=== PATIENT | female | born 1935 | race Caucasian/White ===

== ENCOUNTER → 2016-11-26 | Outpatient (CLI) | payer BC ==
[~2016-11-26] MED LIST: CHOL100027 PO; INDA1TAB3 PO; LOSA1TAB38 PO; TNR25 PO
[2016-11-26 10:52] LABS: HEMATOCRIT 45.1 % (37-47)
== END | disposition home or self-care (01) ==
LOC: C.LABBC 09:21
PROVIDERS: ATTEND Registered Nurse
DX: K76.0 Fatty (change of) liver, not elsewhere classified (principal)

== ENCOUNTER → 2016-12-26 | Outpatient (CLI) | payer BC ==
[2016-12-26 09:40] LABS: HEMATOCRIT 43.8 % (37-47); MEAN CELL VOLUME 97.3 fL (80-100); MEAN CORPUSCULAR HEMOGLOBIN 33.8 pg (25-34); MEAN CORPUSCULAR HGB CONC 34.7 g/dl (32-36); MEAN PLATELET VOLUME 9.1 fL (7.4-10.4); PLATELET COUNT 255 K/uL (130-400); WHITE BLOOD COUNT 6.23 K/uL (4.8-10.8)
[2016-12-26 09:48] LABS: ALT/SGPT 20 U/L (12-78); BLOOD UREA NITROGEN 15 mg/dl (7-18); CALCIUM 9.2 mg/dl (8.5-10.1); CARBON DIOXIDE 29 mmol/L (21-32); CHLORIDE 98 mmol/L (98-107); CREATININE 0.86 mg/dl (0.60-1.20); GLUCOSE 103 mg/dl (70-99); POTASSIUM 3.7 mmol/L (3.5-5.1); SODIUM 134 mmol/L (136-145)
[2016-12-26 09:52] LABS: ALB/GLOB RATIO 1.2 (0.9-2); ALKALINE PHOSPHATASE 70 U/L (45-117); AST/SGOT 18 U/L (15-37); FERRITIN 73.2 ng/ml (8.0-388.0)
== END | disposition home or self-care (01) ==
LOC: C.LABFOXMH 09:13
PROVIDERS: ATTEND Internal Medicine
DX: E83.119 Hemochromatosis, unspecified (principal)

== ENCOUNTER → 2017-06-26 | Outpatient (CLI) | payer BC ==
[2017-06-26 10:57] LABS: HEMATOCRIT 42.6 % (37-47); MEAN CELL VOLUME 96.8 fL (80-100); MEAN CORPUSCULAR HEMOGLOBIN 33.4 pg (25-34); MEAN CORPUSCULAR HGB CONC 34.5 g/dl (32-36); MEAN PLATELET VOLUME 9.3 fL (7.4-10.4); PLATELET COUNT 233 K/uL (130-400); WHITE BLOOD COUNT 5.67 K/uL (4.8-10.8)
[2017-06-26 11:18] LABS: ALT/SGPT 17 U/L (12-78); BLOOD UREA NITROGEN 14 mg/dl (7-18); BUN/CREATININE RATIO 18.6 (10-20); CALCIUM 8.9 mg/dl (8.5-10.1); CARBON DIOXIDE 29 mmol/L (21-32); CHLORIDE 96 mmol/L (98-107); CREATININE 0.73 mg/dl (0.60-1.20); GLUCOSE 96 mg/dl (70-99); POTASSIUM 3.5 mmol/L (3.5-5.1); SODIUM 131 mmol/L (136-145)
[2017-06-26 11:22] LABS: ALB/GLOB RATIO 1.4 (0.9-2); ALKALINE PHOSPHATASE 70 U/L (45-117); AST/SGOT 21 U/L (15-37); FERRITIN 166.2 ng/ml (8.0-388.0)
== END | disposition home or self-care (01) ==
LOC: C.LABFOXMH 09:27
PROVIDERS: ATTEND Nurse Practitioner Family
DX: E83.119 Hemochromatosis, unspecified (principal)

== ENCOUNTER → 2017-11-08 | Outpatient (CLI) | payer BC ==
--- NOTE | 2017-11-08 13:28 | DIAGNOSTIC IMAGING REPORT ---
L VENOUS DOPP LOWER EXT UNILAT HISTORY: 81 years-old Female LLE,SWELLING,ACHING/FULLNESS, R/O DVT acute left lower extremity pain and swelling COMPARISON: None available TECHNIQUE: Multiple real-time sonographic images of the left lower extremity deep venous structures were obtained assessing grayscale appearance, color and spectral flow FINDINGS: There is normal flow, phasicity, compressibility and augmentation of the left lower extremity deep venous structures. Mildly complex left Higginbotham's cyst measures 2.7 x 3.8 x 0.8 cm. IMPRESSION: No sonographic evidence of deep venous thrombosis. The above report was generated using voice recognition software. It may contain grammatical, syntax or spelling errors. Electronically signed by: Patel Patel M.D. 11/08/2017 1:26 PM Dictated Date/Time: 11/08/2017 1:25 PM
== END | disposition home or self-care (01) ==
LOC: C.ULTRBC 12:57
PROVIDERS: ATTEND Nurse Practitioner Family
DX: M79.605 Pain in left leg (principal); M79.89 Other specified soft tissue disorders

== ENCOUNTER → 2017-12-27 | Outpatient (CLI) | payer BC ==
[~2017-12-27] MED LIST changes: +ACET-1256 PO; +BETHAMETHASONE TOP; +POTA-74 PO
[2017-12-27 09:13] LABS: BLOOD UREA NITROGEN 14 mg/dl (7-18); CALCIUM 9.2 mg/dl (8.5-10.1); CARBON DIOXIDE 30 mmol/L (21-32); GLUCOSE 118 mg/dl (70-99); POTASSIUM 3.6 mmol/L (3.5-5.1); SODIUM 133 mmol/L (136-145)
== END | disposition home or self-care (01) ==
LOC: C.LABFOXMH 08:36
PROVIDERS: ATTEND Internal Medicine Hospice and Palliative Medicine
DX: E87.1 Hypo-osmolality and hyponatremia (principal)

== ENCOUNTER → 2018-01-09 | Outpatient (CLI) | payer BC ==
[2018-01-09 10:00] LABS: BLOOD UREA NITROGEN 16 mg/dl (7-18); CALCIUM 9.3 mg/dl (8.5-10.1); CARBON DIOXIDE 28 mmol/L (21-32); CREATININE 0.81 mg/dl (0.60-1.20); GLUCOSE 115 mg/dl (70-99); POTASSIUM 3.7 mmol/L (3.5-5.1); SODIUM 131 mmol/L (136-145)
== END | disposition home or self-care (01) ==
LOC: C.LABFOXMH 08:46
PROVIDERS: ATTEND Internal Medicine
DX: I10 Essential (primary) hypertension (principal)

== ENCOUNTER → 2018-01-21 | Outpatient (CLI) | payer BC ==
[2018-01-21 08:46] LABS: BLOOD UREA NITROGEN 13 mg/dl (7-18); CALCIUM 8.7 mg/dl (8.5-10.1); CARBON DIOXIDE 26 mmol/L (21-32); CREATININE 0.76 mg/dl (0.60-1.20); GLUCOSE 100 mg/dl (70-99); SODIUM 138 mmol/L (136-145)
[2018-01-21 08:53] LABS: OSMOLALITY,URINE 185 mOms/kg (500-800)
[2018-01-21 08:58] LABS: SODIUM RANDOM URINE 29 mEq/L
== END | disposition home or self-care (01) ==
LOC: C.LABFOXMH 08:07
PROVIDERS: ATTEND Internal Medicine
DX: E87.1 Hypo-osmolality and hyponatremia (principal)

== ENCOUNTER → 2018-02-17 | Outpatient (CLI) | payer BC ==
[2018-02-17 08:28] LABS: BLOOD UREA NITROGEN 19 mg/dl (7-18); CARBON DIOXIDE 29 mmol/L (21-32); CREATININE 0.85 mg/dl (0.60-1.20); GLUCOSE 104 mg/dl (70-99); POTASSIUM 4.3 mmol/L (3.5-5.1); SODIUM 138 mmol/L (136-145)
== END | disposition home or self-care (01) ==
LOC: C.LABFOXMH 07:45
PROVIDERS: ATTEND Internal Medicine
DX: I10 Essential (primary) hypertension (principal)

== ENCOUNTER → 2018-06-09 | Outpatient (CLI) | payer BC ==
[~2018-06-09] MED LIST changes: +AMOX1TAB43 PO; +MGNO400 PO; -POTA-74 PO; +SPIR25TA PO
[2018-06-09 15:44] LABS: BASO % 0.5 %; BASO ABS # 0.04 K/uL (0-0.2); EOS % 1.3 %; HEMATOCRIT 42.8 % (37-47); HEMOGLOBIN 14.8 g/dL (12.0-16.0); IG# 0.02 K/uL (0.00-0.02); LYMPH ABS # 2.39 K/uL (1.2-3.4); MEAN CELL VOLUME 97.7 fL (80-100); MEAN CORPUSCULAR HEMOGLOBIN 33.8 pg (25-34); MEAN CORPUSCULAR HGB CONC 34.6 g/dl (32-36); MEAN PLATELET VOLUME 9.4 fL (7.4-10.4); MONO % 7.8 %; MONO ABS # 0.62 K/uL (0.11-0.59); NEUT % 60.1 %; NEUT ABS # 4.79 K/uL (1.4-6.5); PLATELET COUNT 244 K/uL (130-400); RED CELL DISTRIBUTION WIDTH CV 12.6 % (11.5-14.5); RED CELL DISTRIBUTION WIDTH SD 45.2 fL (36.4-46.3); WHITE BLOOD COUNT 7.96 K/uL (4.8-10.8)
[2018-06-09 15:55] LABS: PTT PATIENT 27.3 SECONDS (21.0-31.0)
[2018-06-09 16:02] LABS: ALBUMIN 3.9 gm/dl (3.4-5.0); BLOOD UREA NITROGEN 19 mg/dl (7-18); CARBON DIOXIDE 27 mmol/L (21-32); CREATININE 0.78 mg/dl (0.60-1.20); GLUCOSE 101 mg/dl (70-99); POTASSIUM 3.9 mmol/L (3.5-5.1); SODIUM 137 mmol/L (136-145)
[2018-06-10 05:54] LABS: HEMOGLOBIN A1C 5.7 % (4.5-5.6)
== END | disposition home or self-care (01) ==
LOC: C.LAB 14:23
PROVIDERS: ATTEND Physician Assistant
DX: Z01.812 Encounter for preprocedural laboratory examination (principal)

== ENCOUNTER 2022-02-23 09:45 | Observation (INO) ==
--- NOTE | 2022-02-17 09:00 | History & Physical Report ---
Date of Service February 17, 2022 Assessment & Plan (1) Fracture of humeral head, left, closed: Plan: Treatment options discussed with the patient. She would like to proceed with surgical intervention. Risks, benefits and alternatives to surgery including but not limited to infection, DVT, pain, stiffness, need for revision surgery, damage to blood vessels, damage to nerves, PE, , were discussed with the patient and they wish to proceed. Plan on left reverse total shoulder arthroplasty for fracture. Surgery scheduled for February 23 at [facility] with Dr. Spann. All questions were answered. Patient will return to [facility] upon discharge. Patient will follow-up postoperatively. Encounter type: initial encounter Qualified Code(s): S42.292A - Other displaced fracture of upper end of left humerus, initial encounter for closed fracture History of Present Illness Chief Complaint: Left shoulder pain Primary Care Provider: [facility] 86-year-old female with past medical history significant for hypertension, hemo chromatosis, valvular disease presents with acute onset of left shoulder pain. Patient was sitting on a walker that she had bought and a wheel broke. She fell onto her left shoulder. X-rays demonstrated a significant displaced and impacted proximal humerus fracture. Patient is independent at baseline. Recommend surgical intervention. Patient denies headaches, sweats, fevers, chills, double vision, blurred vision, cough, sore throat, dysphagia, chest pain, sob, wheezing, n/v/d/c, numbness, tingling, fatigue, urinary symptoms, mood disorders. ROS positive for left shoulder pain. Allergies Allergy/AdvReac Type Severity Reaction Status Date / Time lorazepam [From Ativan] AdvReac itching Verified 06/29/21 08:16 Home Medications Medication Instructions Recorded Confirmed Type amlodipine 2.5 mg tablet 2.5 mg PO QAM 06/09/18 09/27/21 History atenolol 50 mg tablet 50 mg PO HS 06/09/18 09/27/21 History cholecalciferol (vitamin D3) 50 2,000 unit PO QAM 06/09/18 09/27/21 History mcg (2,000 unit) capsule (Vitamin D3) losartan 100 mg tablet 100 mg PO QAM 06/09/18 09/27/21 History spironolactone 25 mg tablet 12.5 mg PO QAM 06/09/18 09/27/21 History acetaminophen 500 mg tablet 500 mg PO HS 10/21/19 09/27/21 History (Tylenol Extra Strength) docusate sodium 100 mg capsule 100 mg PO BID #60 cap 02/09/22 Rx (Colace) hydrocodone 5 mg-acetaminophen 325 0.5 - 1 tab PO Q6H PRN #14 tab 02/09/22 Rx mg tablet Past Med/Surg History Medical History Cancer SKIN (BCC) Glaucoma Hemochromatosis Follows with GI Hypertension LBBB (left bundle branch block) Chronic since 2011 per PCP. Doesnt see cardio. Osteoarthritis Sensorineural hearing loss (SNHL) of right ear with restricted hearing of left ear Valvular disease Mild MR. Moderate TR. Mildly elevated RVSP 48mmhg: per 2018 ECHO. Surgical History H/O left cataract extraction History of appendectomy History of bilateral tubal ligation History of breast biopsy right History of colonoscopy History of right cataract surgery History of tonsillectomy History of total hip arthroplasty RIGHT & LEFT History of total knee replacement RIGHT Family History Denies family history of Colorectal cancer Social History Smoking Status: Never smoker Second Hand Exposure: No; Hx Alcohol Use: Yes Alcohol type: wine Hx Substance Use: No Preferred Language: Divehi Communication Ability: Effective Leather Staker Required: No Beliefs That Will Affect Care: None Current Living Situation: Other Current Living Situation Comment: [facility] Feels Safe at Home: Yes Assistive Devices: Glasses and Hearing Aid - Bilateral Review of Systems All systems reviewed & are unremarkable except as noted in HPI & below Physical Exam Constitutional: well developed and well nourished; no acute distress Eyes: PERRL, conjunctivae normal, anicteric sclerae ENMT: external ear and nose normal, oropharynx normal Neck: trachea midline, no thyromegaly Respiratory: normal respiratory effort, lungs clear to auscultation Cardiovascular: RRR, no murmur, no edema Musculoskeletal: Left shoulder: Tenderness proximal humerus. Significant ecchymosis left upper extremity, mild to moderate swelling. Fingers are mobile. Distal neurovascular status and sensation intact. Sensation to axillary nerve distribution is intact. Wrist hand and elbow motion is normal. Pain with gentle passive motion of her shoulder. Skin: no rashes, warm and dry Neurologic: patellar DTR's 2+ bilat, sensation intact Psychiatric: A+Ox3, euthymic affect Results & Data ([facility]) Diagnostic Findings LEFT SHOULDER 3 VIEWS CLINICAL HISTORY: Fall with left shoulder injury. FINDINGS: 3 views of the left shoulder are obtained. No prior studies are available for comparison at the time of dictation. The skeletal structures are osteopenic. There is an impacted and comminuted fracture of the left humeral head and neck. There are displaced fragments from the humeral head as well as mild medial displacement of the humeral shaft. Overlying soft tissue edema is noted. No additional fracture is identified. Mild degenerative change is noted at the acromioclavicular joint. The imaged left lung parenchyma appears clear noting basilar atelectasis. There is atherosclerotic calcification of the thoracic aorta. IMPRESSION: Impacted and comminuted fracture of the left humeral head and neck as above.
--- NOTE | 2022-02-21 10:41 | Anesthesiology Consultation ---
Date of Service February 21, 2022 Assessment & Plan (1) Encounter for pre-operative examination: - COVID screening: Per assessment on 02/21: No known COVID-19 positive contacts or current COVID-19 related symptoms. Travel screen negative. Patient vaccinated. Preop COVID test done 02/19 ([place]) was negative. - Preop EKG: Done 02/20/22 (unconfirmed). Very poor data quality possibly affecting interpretation. Recent echo done 01/[address] Abdul. Will repeat EKG AM DOS. Chart Review Chart Review: Acceptable Risk for Surgery (pending EKG/evaluation AM DOS) and Patient NOT seen in Pre Admission Testing History Surgery Operation Date: 02/23/22 11:35 Proposed Procedures p Left Total Shoulder Arthroplasty Reverse - Sebas Spann MD Height/Weight Height: 5 ft Weight: 63.503 kg Allergies Allergy/AdvReac Type Severity Reaction Status Date / Time lorazepam [From Ativan] AdvReac Intermediate itching Verified 02/21/22 08:36 Medications Home Medications Medication Instructions Recorded Confirmed Last Taken amlodipine 2.5 mg tablet 2.5 mg PO QAM 06/09/18 02/21/22 11/04/19 06:00 atenolol 50 mg tablet 50 mg PO 06/09/18 02/21/22 11/03/19 cholecalciferol (vitamin D3) 50 2,000 unit PO QAM 06/09/18 02/21/22 11/03/19 mcg (2,000 unit) capsule (Vitamin D3) losartan 100 mg tablet 100 mg PO QAM 06/09/18 02/21/22 11/03/19 spironolactone 25 mg tablet 12.5 mg PO QAM 06/09/18 02/21/22 11/03/19 acetaminophen 500 mg tablet 500 mg PO HS 10/21/19 02/21/22 11/03/19 (Tylenol Extra Strength) docusate sodium 100 mg capsule 100 mg PO BID #60 cap 02/09/22 02/21/22 Unknown (Colace) hydrocodone 5 mg-acetaminophen 325 0.5 - 1 tab PO Q6H PRN #14 tab 02/09/22 02/21/22 Unknown mg tablet Past Medical History Medical History Cancer skin (BCC) Glaucoma Hemochromatosis Follows with GI, no recent issues noted Hypertension LBBB (left bundle branch block) Chronic since 2011 per PCP, had unremarkable echo 01/31/22 Osteoarthritis Sensorineural hearing loss (SNHL) of right ear with restricted hearing of left ear Past Family History Family History Other No family history of adverse response to anesthesia Denies family history of Colorectal cancer Past Surgical History Surgical History H/O left cataract extraction History of appendectomy History of bilateral tubal ligation History of breast biopsy right History of colonoscopy History of right cataract surgery History of tonsillectomy History of total hip arthroplasty RIGHT & LEFT History of total knee replacement RIGHT Social History Smoking Status: Former smoker tobacco type: cigarettes Do You Dip or Chew Tobacco: No Hx Alcohol Use: Yes Alcohol type: wine alcohol intake frequency: holidays/special occasions only Hx Substance Use: No substance use type: does not use Lab Results Anesthesia Preop Results Results Anesthesia Widget: WBC 8.03 K/uL (4.8-10.8) 02/19/22 Hgb 12.3 g/dL (12.0-16.0) 02/19/22 Hct 37.3 % (37-47) 02/19/22 Plt 365 K/uL (130-400) 02/19/22 Na 134 mmol/L (136-145) L 02/19/22 K 4.6 mmol/L (3.5-5.1) 02/19/22 Cl 100 mmol/L (98-107) 02/19/22 CO2 28 mmol/L (21-32) 02/19/22 BUN 17 mg/dl (6-23) 02/19/22 Creat 0.68 mg/dl (0.6-1.2) 02/19/22 Glucose Level 102 mg/dl (70-99(Fasting)) H 02/19/22 PT 10.7 Seconds (9.0-12.0) 02/19/22 PTT 26.9 Seconds (21.0-31.0) 02/19/22 INR 1.0 (0.9-1.1) 02/19/22 HA1c 5.5 % (4.5-5.6) 02/19/22 Urine Color Yellow 02/14/22 Urine Appearance Cloudy (Clear) A 02/14/22 Urine pH 7.0 (4.5-7.5) 02/14/22 Urine Specific [place] 1.010 (1.000-1.030) 02/14/22 Urine Protein Trace (Negative) H 02/14/22 Urine Glucose (UA) Negative (Negative) 02/14/22 Urine Ketones Negative (Negative) 02/14/22 Urine Blood 2+ (Negative) H 02/14/22 Urine Nitrite Negative (Negative) 02/14/22 Urine Bilirubin Negative (Negative) 02/14/22 Urine Urobilinogen Negative (Negative) 02/14/22 Urine Leukocyte Esterase 3+ (Negative) H 02/14/22 Urine WBC (Auto) >30 /hpf (0-5) H 02/14/22 Urine RBC (Auto) 0-4 /hpf (0-4) 02/14/22 Urine Hyaline Casts (Auto) 1-5 /lpf (0-5) 02/14/22 Urine Epithelial Cells (Auto) 10-20 /lpf (0-5) H 02/14/22 Urine Bacteria (Auto) 4+ (Negative) H 02/14/22 Testing Laboratory Results 02/14/22 URINE CULTURE e. coli Electrocardiogram Date: 02/20/22 Accelerated AV junctional rhythm with aberrant ventricular conduction or acceleration idioventricular rhythm at 71bpm. Aberrantly conducted complexes. moderate IVCD. Slight high-lateral repolarization disturbance, consider ischemia, LV overload or aspecific change. unconfirmed report. Recent echo done 02/01/20. Echocardiogram Date: 01/31/22 EF 55-60%. No RWMA. Mild AV sclerosis. Mild AR. Mild to moderate TR. RVSP elevated at 40-50mmhg.
[~2022-02-23 09:45] MED LIST changes: -ACET-1256 PO; +ACETAMINOPHEN 500 MG TAB PO SCH; -AMOX1TAB43 PO; -BETHAMETHASONE TOP; +BUPIVACAINE 0.5 % 5 MG/1 ML PF 10ML VIAL ONE; -CHOL100027 PO; +CeleBREX 200 MG CAP PO SCH; +FAMOTIDINE 20 MG TAB PO SCH; +GABAPENTIN 300 MG CAP PO SCH; -INDA1TAB3 PO; +LACTATED RINGER'S 1,000 ML IV SCH; -LOSA1TAB38 PO; -MGNO400 PO; -SPIR25TA PO; -TNR25 PO; +TRANEXAMIC ACID 1,000 MG **IV Intra-op IV SCH; +TRANEXAMIC ACID 1,000 MG **IV Pre-op IV SCH; +ceFAZolin 2000MG 2,000 MG/15 ML SYR IV SCH; +dexAMETHasone 4 MG TAB PO SCH
[2022-02-23] MEDS ORDERED: fentaNYL citrate 100 MCG/2 ML VIAL ONE (10:53)
[2022-02-23] MEDS ORDERED: MIDAZOLAM HCL 1 MG/ML 2ML VIAL ONE (10:53)
--- NOTE | 2022-02-23 11:10 | History & Physical Bridge Note ---
Date of Service February 23, 2022 History & Physical Bridge Note I have examined the patient, reviewed the History & Physical and in the interval since the performance of the History & Physical I have noted the following changes of clinical significance: no changes noted
[2022-02-23] MEDS ORDERED: ROPIVACAINE 0.5% 5 MG/ML 30 ML VIAL ONE (12:09)
[2022-02-23] MEDS ORDERED: EPINEPHrine INJ 1 MG/ML AMP ONE (12:10)
[2022-02-23] MEDS ORDERED: ATROPINE SULFATE 0.1 MG/ML 10ML SYR IV PRN (13:29)
[2022-02-23] MEDS ORDERED: fentaNYL citrate 100 MCG/2 ML VIAL IV PRN (13:29)
[2022-02-23] MEDS ORDERED: ePHEDrine sulfate 50 MG/ML AMP IV PRN (13:29)
[2022-02-23] MEDS ORDERED: ONDANSETRON INJ 2 MG/ML 2 ML VIAL IV PRN ×2 (13:29→17:52)
[2022-02-23] MEDS ORDERED: SUGAMMADEX SODIUM 200 MG/2 ML VIAL IV ONE (14:05)
[2022-02-23] MEDS ORDERED: KETOROLAC 30 MG/ML VIAL ONE (16:01)
--- NOTE | 2022-02-23 16:29 | Post Operative Brief Note ---
Immediate Post Op Note v1 Date of Surgery February 23, 2022 Pre & Post Diagnosis Operation Date: 02/23/22 12:05 Pre-Op Diagnosis: Left impacted comminuted displaced proximal Humerus Fracture Post-Op Diagnosis: Left impacted comminuted displaced proximal humerus Fracture, glenohumeral osteoarthritis degeneration glenoid labrum, biceps tendinopathy. I identified the patient and participated in the time-out.: Yes Procedure Operation Date: 02/23/22 12:05 Actual Procedures p Left Total Shoulder Arthroplasty Reverse-Cemented(Left) bone grafting and repair of tuberosities, biceps tenodesis. Sebas Spann MD Surgeon Sebas Spann MD [employer] Estimated Blood Loss 150 Findings Consistent with Post-Op Diagnosis Specimens Humeral head Drains Hemovac Drain Anesthesia Type General Regional Complications none Disposition Disposition: Recovery Room Overlapping Procedure I was immediately available: during the entire case.
--- NOTE | 2022-02-23 16:54 | XRay Report ---
XR shoulder LT min 2V routine CLINICAL HISTORY: Post shoulder surgery TECHNIQUE: 3 views of the left shoulder were obtained. Comparison: Comparison is made to shoulder radiograph 02/09/2022 FINDINGS: Patient is status post shoulder arthroplasty with expected postsurgical changes including soft tissue swelling, subcutaneous emphysema, and surgical staple placement. No periarticular lucency or hardwar e fracture is seen. Aortic calcification is again noted. IMPRESSION: Expected postoperative appearance status post placement of shoulder arthroplasty. ACT 112: Negative or not required by law. Electronically signed by: Jagdeep Welch M.D. 02/23/2022 4:53 PM
--- NOTE | 2022-02-23 17:08 | Anesthesiology Progress Note ---
Date of Service February 23, 2022 Anesthesia Post Procedure Vital Signs Vital Signs: Temp Pulse Pulse Resp BP Pulse Ox 02/23/22 17:05 65 14 104/44 L 94 02/23/22 16:55 64 12 115/42 L 95 02/23/22 16:45 66 17 117/48 L 100 02/23/22 16:35 66 16 139/52 L 100 02/23/22 16:25 36.0 C L 67 20 135/47 L 100 02/23/22 10:18 36.9 C 69 18 121/54 L 97 Transfer of Care Handoff Completed per policy Notes Mental Status: alert / awake / arousable Patient Amnestic to Procedure: Yes Nausea / Vomiting: adequately controlled Pain: adequately controlled Airway Patency, RR, SpO2: stable & adequate BP & HR: stable & adequate Hydration State: stable & adequate Anesthetic Complications: no major complications apparent and Pt Satisfied with anesthetic care Notes: The patient is awake and comfortable.
[2022-02-23] MEDS ORDERED: HYDROmorphone INJ 0.5 MG/0.5 ML SYR IV PRN (17:52)
[2022-02-23] MEDS ORDERED: NALOXONE HCL 0.4 MG/1 ML VIAL/CARP IV PRN (17:52)
[2022-02-23] MEDS ORDERED: MAGNESIUM HYDROXIDE SUSP 30 ML UDC PO PRN (17:52)
[2022-02-23] MEDS ORDERED: METOCLOPRAMIDE HCL INJ 5 MG/ML 2 ML VIAL IV PRN (17:52)
[2022-02-23] MEDS ORDERED: bisacodyL 10 MG SUPP PR PRN (17:52)
[2022-02-23] MEDS: SODIUM CHLORIDE 0.9% 1000ML 1,000 ML IV SCH (18:34)
[2022-02-23] MEDS: ASPIRIN 81 MG ECTAB PO SCH (20:22)
[2022-02-23] MEDS: SENNA 8.6 MG TAB PO SCH (20:22)
[2022-02-23] MEDS: DOCUSATE SODIUM 100 MG CAP PO SCH (20:22)
[2022-02-23] MEDS ORDERED: DOCUSATE SODIUM 100 MG CAP PO SCH (21:00)
[2022-02-23] MEDS ORDERED: ATENOLOL 50 MG TABLET PO SCH (21:00)
[2022-02-23] MEDS: ceFAZolin 1000MG 1,000 MG/7.5 ML SYR IV SCH (21:39)
[2022-02-23] MEDS: ACETAMINOPHEN 500 MG TAB PO SCH (21:40)
--- NOTE | 2022-02-23 22:30 | Electrocardiogram Report ---
Test Reason : Blood Pressure : / mmHG Vent. Rate : 066 BPM Atrial Rate : 066 BPM P-R Int : 146 ms QRS Dur : 122 ms QT Int : 436 ms P-R-T Axes : 039 080 058 degrees QTc Int : 457 ms Normal sinus rhythm Left bundle branch block Abnormal ECG When compared with ECG of 23-MAR-2018 07:08, No significant change Confirmed by Mark Malcolm ([id number]) on 02/23/2022 10:29:55 PM Referred By: Sebas Spann Confirmed By:Mark Malcolm
[2022-02-24] MEDS: SODIUM CHLORIDE 0.9% 1000ML 1,000 ML IV SCH (04:20)
[2022-02-24] MEDS: ceFAZolin 1000MG 1,000 MG/7.5 ML SYR IV SCH (06:08)
[2022-02-24] MEDS: ACETAMINOPHEN 500 MG TAB PO SCH ×3 (06:10→21:05)
--- NOTE | 2022-02-24 06:31 | Orthopedic Progress Note ---
Date of Service February 24, 2022 Assessment & Plan (1) Status post reverse arthroplasty of left shoulder: Plan: POD #1 s/p Left Total Shoulder Arthroplasty Reverse sling cont to ice left shoulder no ROM left shoulder, she can do gentle hand/wrist/elbow ROM ASA 81mg po bid d/c hemovac Admission and Anticipated Discharge Date Admission Date: February 23, 2022 Subjective POD #1 s/p Left Total Shoulder Arthroplasty Reverse Review of Systems Constitutional: no fever and no chills Respiratory: no cough and no dyspnea Cardiovascular: no chest pain, no dyspnea and no orthopnea Gastrointestinal: no abdominal pain, no nausea and no vomiting Physical Exam Physical Exam: Vital Signs Temp 36.5 C 02/24/22 03:51 Pulse 60 02/24/22 03:51 Resp 14 02/24/22 03:51 BP 93/57 L 02/24/22 03:51 Pulse Ox 94 02/24/22 03:51 Intake & Output 02/23/22 02/23/22 02/24/22 06:59 18:59 06:59 Intake Total 1550 / 2926.667 1376.667 / 2926.66 7 Output Total 160 / 195 35 / 195 Balance 1390 / 2731.667 1341.667 / 2731.66 7 Weight 63.503 kg Intake: IV 200 / 1176.667 976.667 / 1176.667 Lactated Ringe r's 1,000 ml @ 15 0 / 0 mls/hr IV .Q24 H LENO Rx#: [id number] Sodium Chlorid e 0.9% 1000ML 1, 976.667 / 976.667 000 ml @ 100 m ls/hr IV .Q10H LENO Rx#:[id number] Tranexamic Aci d / 0.7% NaCl 1, 200 / 200 000 mg In 100 ml @ 600 mls/hr IV TODAY@0600 LENO Rx#:[id number] IV Perioperative 1350 / 1350 Oral 400 / 400 Output: Estimated Blood Loss 150 / 150 Drain Output 35 / 45 Left Shoulder Hemovac 35 Other: # Unmeasured Voi ds 1 Weight Measureme nt Method Standing Scale Constitutional: WD/WN, vitals as above Musculoskeletal: Left upper extremity: resting in sling, dressing clean and dry. rad/med/uln nerves intact. Rad pulse +2 Results & Data ([facility]) Vital Signs (Past 12 Hours) Vital Signs Temp Pulse Resp BP Pulse Ox 02/24/22 03:51 36.5 C 60 14 93/57 L 94 02/23/22 23:35 36.3 C L 59 L 15 92/55 L 94 02/23/22 23:25 36.5 C 75 91/64 L 94 02/23/22 18:58 71 16 109/66 93 02/23/22 18:35 36.8 C 78 18 120/66 94
[2022-02-24 06:56] LABS: Basophils # (auto) 0.01 K/uL (0-0.2); Basophils % (auto) 0.1 %; Eosinophils # (auto) 0.01 K/uL (0-0.5); Eosinophils % (auto) 0.1 %; Hematocrit (blood only) 32.9 % (37-47); Hemoglobin 11.1 g/dL (12.0-16.0); Immature Granulocytes # (auto) 0.04 K/uL (0.00-0.02); Immature Granulocytes % (auto) 0.3 %; Lymphocytes # (auto) 1.16 K/uL (1.2-3.4); Lymphocytes % (auto) 7.7 %; Mean Corpuscular Hemoglobin 34.2 pg (25-34); Mean Corpuscular Hgb Conc 33.7 g/dL (32-36); Mean Corpuscular Volume 101.2 fL (80-100); Mean Platelet Volume 8.5 fL (7.4-10.4); Monocytes # (auto) 0.89 K/uL (0.11-0.59); Monocytes % (auto) 5.9 %; Neutrophils # (auto) 12.88 K/uL (1.4-6.5); Neutrophils % (auto) 85.9 %; Platelet Count 339 K/uL (130-400); RDW Coefficient of Variation 13.8 % (11.5-14.5); RDW Standard Deviation 51.4 fL (36.4-46.3); Red Blood Count 3.25 M/uL (4.2-5.4); White Blood Count 14.99 K/uL (4.8-10.8)
[2022-02-24 07:11] LABS: Calcium 8.1 mg/dl (8.5-10.1); Creatinine Clr Calc Pharmacy 32.4 ml/min; Est GFR (African American) 58.3 ml/min; Est GFR (Non-African American) 50.3 ml/min; Potassium 4.6 mmol/L (3.5-5.1)
[2022-02-24] MEDS: oxyCODONE HCL IR 5 MG TAB (IMMEDIATE RELEASE) PO PRN ×3 (08:57→23:10)
[2022-02-24] MEDS: MULTIVITAMIN TAB PO SCH (08:58)
[2022-02-24] MEDS: CHOLECALCIFEROL 1,000 UNITS 25 MCG TAB PO SCH (08:58)
[2022-02-24] MEDS: ASPIRIN 81 MG ECTAB PO SCH ×2 (08:58→21:04)
[2022-02-24] MEDS: DOCUSATE SODIUM 100 MG CAP PO SCH ×2 (08:58→21:05)
[2022-02-24] MEDS ORDERED: SPIRONOLACTONE 12.5 MG TAB PO SCH (09:00)
[2022-02-24] MEDS ORDERED: amLODIPine BESYLATE 5 MG TAB PO SCH (09:00)
[2022-02-24] MEDS ORDERED: LOSARTAN POTASSIUM 50 MG TAB PO SCH (09:00)
--- NOTE | 2022-02-24 13:12 | Hospitalist Consultation ---
Date of Consultation February 24, 2022 Assessment & Plan (1) Status post reverse arthroplasty of left shoulder: (2) Sensorineural hearing loss (SNHL) of right ear with restricted hearing of left ear: (3) History of basal cell carcinoma: (4) Encounter for pre-operative examination: (5) HTN (hypertension): (6) LBBB (left bundle branch block): (7) Hemochromatosis: (8) Tricuspid regurgitation: Kelly is an 86-year-old female with history of hemochromatosis and hypertension who presents for operative repair of a left shoulder fracture. We are consulted for medical management of chronic medical problems. She is doing well and stable at bedside assessment Left shoulder fracture status postoperative repair Activity, pain control, rehab per primary surgical team Neurovascularly intact at time of assessment Hypertension Patient on [employer] TAPER amlodipine 2.5 mg, atenolol 50 mg, losartan 100 mg, spironolactone 12.5 mg Patient mildly hypotensive but asymptomatic postsurgically Hold antihypertensives at this time. If blood pressure improves resume amlodipine and atenolol. If blood pressure continues to remain normal may resume losartan. Consider dose reduction in losartan depending on pressures Patient reports that while she has been on losartan spironolactone, he was elliot d to stop spironolactone shortly before admission Discontinue spironolactone CBC, BMP in the morning History of valve disease TTE 02/02: EF 55-60%. Mild aortic sclerosis without significant stenosis. Mild to moderate tricuspid regurg. No acute intervention for this Historical left bundle branch block on EKG. No symptoms of ACS. 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 She underwent surgical repair with total left shoulder arthroplasty reverse cemented on 02/23/2022 and is seen postop. She is comfortable and in no acute distress Kelly is seen at the bedside. She reports she feels well, has some aching in her left shoulder at the surgical site but otherwise feels well. She reports she has not had any lightheadedness, dizziness, chest pain, chest pressure, syncope, or presyncope but does note that her blood pressure has been lower than normal. She reports that she thinks she did take her blood pressure medicines prior to surgery. Does not normally have any problems with low blood pressure. She reports her fingers feel okay bilaterally, she is able to wiggle her fingers without numbness tingling or pain in her left arm. She has not any nausea, vomiting, diarrhea and has not had any fevers or chills since surgery. She does have a history of some hearing loss, left bundle branch block, and hemochromatosis. Medical History: Reviewed Medications: Reviewed Surgical History: Reviewed Allergies: Reviewed Social History: Does drink evening wine at home, no recent tobacco use, no recreational drug use Code Status: Full code Allergies Allergy/AdvReac Type Severity Reaction Status Date / Time lorazepam [From Ativan] AdvReac Intermediate itching Verified 02/23/22 10:14 Home Medications Medication Instructions Recorded Confirmed Type amlodipine 2.5 mg tablet 2.5 mg PO QAM 06/09/18 02/23/22 History atenolol 50 mg tablet 50 mg PO HS 06/09/18 02/23/22 History cholecalciferol (vitamin D3) 50 2,000 unit PO QAM 06/09/18 02/23/22 History mcg (2,000 unit) capsule (Vitamin D3) losartan 100 mg tablet 100 mg PO QAM 06/09/18 02/23/22 History spironolactone 25 mg tablet 12.5 mg PO QAM 06/09/18 02/23/22 History acetaminophen 500 mg tablet 500 mg PO HS 10/21/19 02/23/22 History (Tylenol Extra Strength) docusate sodium 100 mg capsule 100 mg PO BID #60 cap 02/09/22 02/23/22 Rx (Colace) hydrocodone 5 mg-acetaminophen 325 0.5 - 1 tab PO Q6H PRN #14 tab 02/09/22 02/23/22 Rx mg tablet Patient History Medical History Cancer skin (BCC) Glaucoma Hemochromatosis Follows with GI, no recent issues noted Hypertension LBBB (left bundle branch block) Chronic since 2011 per PCP, had unremarkable echo 01/31/22 Osteoarthritis Sensorineural hearing loss (SNHL) of right ear with restricted hearing of left ear Surgical History H/O left cataract extraction History of appendectomy History of bilateral tubal ligation History of breast biopsy right History of colonoscopy History of right cataract surgery History of tonsillectomy History of total hip arthroplasty RIGHT & LEFT History of total knee replacement RIGHT Family History Other No family history of adverse response to anesthesia Denies family history of Colorectal cancer Social History Smoking Status: Former smoker Second Hand Exposure: Yes (hx); Do You Dip or Chew Tobacco: No; Tobacco Cessation Education Requested by Patient: No Hx Alcohol Use: Yes Alcohol type: wine Hx Substance Use: No Preferred Language: Kyrgyz Communication Ability: Effective Network Solutions Architect Required: No Beliefs That Will Affect Care: None Current Living Situation: Other Current Living Situation Comment: [facility] Other Information That Helps Us Care for You: No Feels Safe at Home: Yes Safety Concerns: Feels Safe At This Time Assistive Devices: Cane, Glasses and Hearing Aid - Bilateral Assistive Devices Comment: arm sling prn Review of Systems Review of Systems: All systems reviewed & are unremarkable except as noted in Subjective Physical Exam Physical Exam: General: A&Ox3. NAD. Cooperative. HEENT: Atraumatic, normocephalic. Vision/hearing grossly intact Pulm: CTAB A&P. -wheezes, -rales, -rhonchi. Symmetrical chest rise. No increase in work of breathing. No respiratory distress. Cardiac: RRR, trace systolic murmur, no rubs or gallops Radial pulses intact and symmetrical. Abdominal: Nontender, nondistended, soft. BS present. Extremities: Left upper extremity with postsurgical dressing intact, arm in sling. Full passive and active range of motion in wrist and fingertips, sensation intact to soft touch in hands bilaterally, radial pulses intact bilaterally, camp advisor strength intact bilaterally. Results & Data Results & Data ([facility]) Vital Signs (Past 12 Hours) Vital Signs Temp Pulse Pulse Resp BP Pulse Ox 02/24/22 07:16 36.5 C 57 L 16 95/58 L 97 02/24/22 03:51 36.5 C 60 14 93/57 L 94 PG Care Time/CCT Total # of Minutes Spent Total Time Spent with Patient: Total time spent is greater than 50% in coordination of care (as documented) at patient's floor/unit and/or counseling patient: Coding Level of Care Code 40639 Inpt Consult Level 4 Diagnoses Status post reverse arthroplasty of left shoulder Z96.612 Sensorineural hearing loss (SNHL) of right ear with restricted hearing of left ear H90.A21 History of basal cell carcinoma Z85.828 Encounter for pre-operative examination Z01.818 HTN (hypertension) I10 LBBB (left bundle branch block) I44.7 Hemochromatosis E83.119 Tricuspid regurgitation I07.1
[2022-02-24] MEDS ORDERED: LACTATED RINGER'S 250 ML IV ONE (17:14)
--- NOTE | 2022-02-24 19:14 | Operative Report (OR) ---
DATE OF SURGERY: 02/23/2022. INDICATIONS FOR PROCEDURE: Patient is an 86-year-old female who had a fall and suffered a left proxi mal humerus fracture. Radiographs demonstrate that there was a markedly valgus impacted fracture of the humerus with significant angulation and some displacement of the tuberosities. The patient would have diminished shoulder function leaving the fracture and pattern at its present condition and the patient wanted to proceed with reverse shoulder replacement to maximize function of her left shoulder as she is still quite active for her age at this time. PREOPERATIVE DIAGNOSIS: Displaced comminuted angulated left proximal humerus fracture. POSTOPERATIVE DIAGNOSES: Displaced comminuted angulated left proximal humerus fracture including gle nohumeral osteoarthritis. PROCEDURE: Left fracture, reverse total shoulder replacement with repair and bone grafting of the tu berosity fractures and biceps tenodesis. SURGEON: Sebas Spann MD. DUSTING AND BRUSHING MACHINE OPERATOR: YAJAIRA Connor. ANESTHESIA: Regional block and general. COMPLICATIONS: None. DRAINS: Two Hemovac. SPECIMENS: Humeral head. DISPOSITION: Recovery room. OPERATIVE REPORT: The patient was placed under regional block and general anesthetic, positioned on a 40-degree beach chair position on the operating room table. A towel was placed on the medial borde r of left scapula. She was translated to left side of the bed, so her shoulder could be manipulated off the bed as necessary. Exam demonstrated she had ecchymosis from recent fracture, but good passiv e motion. The left upper extremity was prepped and draped with ChloraPrep in the usual sterile fashi on. Head was placed on a foam headrest, she had protective eyewear, she had TEDs and SCDs. An anter ior deltopectoral approach was performed to the left shoulder. Skin was incised sharply. Subcutaneo us flaps were elevated. The cephalic vein was large and dissected out and retracted and protected th roughout the procedure and retracted laterally with the deltoid. Pectoralis was retracted medially. The deltopectoral interval was developed down to the clavipectoral fascia, which was divided at the lateral margin of the conjoined tendon extending up to the CA ligament. There was some bleeding that was old from the old fracture, which was about a week old. The upper centimeter of pectoralis was r eleased for inferior exposure. There was inflammation in biceps tendon sheath, which biceps course a cross the fracture site and went ahead and tenodesed the biceps to the pectoralis tendon with #2 Fibe rWire sutures and resected the proximal biceps. Dissection was taken along the biceps to extend this up into the bicipital groove and down along the rotator interval down to the glenoid. This exposed the proximal humerus fracture. There was a significant valgus impaction of the humerus fragment and fracture in both the greater tuberosity that involved the teres minor and infraspinatus with displace d fragment posteriorly there and then there was some displacement of the lesser tuberosity where the subscapularis fracture was. Not all of the lesser tuberosity was fractured off, so I did osteotomy to leave a decent sized bone on the subscapularis tendon and then placed a #1 Vicryl traction suture in to the subscapularis tendon. This was retracted medially. Placed another #1 Vicryl traction suture into the displaced infraspinatus tendon, fracture fragment posteriorly then there was still a piece o f the supraspinatus attached to the tuberosity of the humerus, so I did an osteotomy with an oscillat ing saw and saved that piece of bone with another #1 Vicryl suture for traction suture. 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 Humeral head was used for bone graft for the hole in the fracture stem. The bone grafting harvesting device was used to make the contoured bone block for the graft. The remainder of the humeral head cancellous bone was ground up with a rongeur for bone grafting later in the procedure. At this time, I was able to expose the glenoid. Noting the area of the neck fracture, there was some comminution there medially, there was a fragment that was attached to the periosteal attachment, but it was fractured in the medial calcar area. Careful retraction was performed not to displace any more of the neck fragments. The glenoid was exposed with retractors and there was a degenerative glenoid labrum with some calcifications and degenerative fraying noted. There was still intact articular cartilage on the glenoid. The remainder of the biceps tendon was resected as well as the labrum circumferentially and then the articular donald face was curetted off the bone, so we could see the appropriate glenoid alignment for placing of the implant. The patient had petite shoulder and a 25 baseplate. The Tornier reverse shoulder replaceme nt for fracture with fracture stem was utilized. The Aequalis glenoid baseplate was utilized. The c entral drill hole was made for the reamer, placing this in 10 degrees of inferior tilt. The reamer f or the 25 baseplate was used. The central drill hole was widened. The bone was irrigated and then t he 25 mm hydroxyapatite-coated Aequalis Tornier baseplate was impacted in position and transfixed wit h anterior, posterior compression screws and superior and inferior locking screws with good fixation. The 36 mm standard glenosphere was impacted on the baseplate and screwed, the screw was tightened a nd the security of the glenosphere was verified. Then, attention was taken to the humerus preparation. The reamer for the 7 stem was placed followed by the 7 fracture stem trial, which is 130 mm length. This fit appropriately and we did a trial redu ction of a +6 reverse insert and stability was verified and satisfactory. Then, the trial was disloc ated from the glenosphere and then the height of the trial from the fracture neck was measured for la ter cementing at the appropriate depth. Then cement restrictor was placed in the canal at the approp riate depth. The canal was irrigated copiously. We did place drill holes in the shaft proximally an d placed two #5 FiberWire sutures prior to cementing for later tuberosity fixation to the shaft. The bone graft was placed into the fracture stem. The 7 mm fracture stem was placed in position and clarence ented with Palacos G cement and all excess cement was cleared. Once cement hardened, the 36+6 revers e insert was impacted into the stem and then four #5 FiberWire sutures were placed around the greater tuberosity fracture fragments into the posterior rotator cuff tissue. These were placed around the neck of the implant and then the implant was reduced to the glenosphere. Then, the greater tuberosit y fragments were bone grafted to the shaft of the stem and sutured to the stem with two of #5 FiberWi re sutures having placed the previously harvested bone graft from the head between the fragments and the implant and shaft area. This was assessed for stability and then attention was taken back to the lesser tuberosity and the other two FiberWire sutures that were previously placed were passed around the lesser tuberosity and then this was bone grafted to the neck of the implant in a similar fashion . This transfixed the lesser tuberosity to the stem and to the greater tuberosity fracture fragments . Then, the sutures that were in the shaft were placed in [id number] fashion through the rotator c uff tissue securing the tuberosity fragments to the shaft. There was a stable range of motion of the shoulder, there was 150 degrees of flexion, 100 degrees of abduction, and 60 degrees of external rot ation without any tension on the repair. The wound was irrigated, taking care not to remove any of t he bone graft. Then, the pectoralis was repaired with [id number] #2 FiberWire sutures and then two Hemovac drains were placed and then the deltopectoral interval was repaired with interrupted #1 V icryl sutures and then the subcutaneous tissues were closed with 2-0 Vicryl sutures and the skin was closed with gabo. Sterile dressings were applied and a shoulder immobilizer was placed. YAJAIRA Farley participated in the procedure as my conservation assistant. He was an integral part in the entir e procedure and assisted in all aspects of the procedure. This included patient positioning, preppin g, draping, arm positioning, soft tissue retraction, instrument management and closure of the outer l arnold and postoperative care of the patient. Job ID: [id number]
[2022-02-24] MEDS: SENNA 8.6 MG TAB PO SCH (21:04)
[2022-02-25] MEDS: ACETAMINOPHEN 500 MG TAB PO SCH ×2 (05:42→13:32)
--- NOTE | 2022-02-25 06:20 | Orthopedic Progress Note ---
Date of Service February 25, 2022 Assessment & Plan (1) Status post reverse arthroplasty of left shoulder: Plan: POD #2 s/p Left Total Shoulder Arthroplasty Reverse sling cont to ice left shoulder no ROM left shoulder, she can do gentle hand/wrist/elbow ROM ASA 81mg po bid plan for d/c to assisted living at [facility] later today Admission and Anticipated Discharge Date Admission Date: February 23, 2022 Subjective POD #2 s/p Left Total Shoulder Arthroplasty Reverse Review of Systems Constitutional: no fever and no chills Respiratory: no cough and no dyspnea Cardiovascular: no chest pain, no dyspnea and no orthopnea Gastrointestinal: no abdominal pain, no nausea and no vomiting Physical Exam Physical Exam: Vital Signs Temp Pulse Pulse Resp BP Pulse Ox 02/24/22 21:45 36.8 C 65 15 132/68 95 02/24/22 16:07 36.8 C 64 16 104/47 L 99 02/24/22 07:16 36.5 C 57 L 16 95/58 L 97 Intake and Output 02/24/22 02/24/22 02/25/22 14:59 22:59 06:59 Intake Total 366.667 / 616.667 250 / 616.667 Output Total Balance 366.667 / 615.667 250 / 615.667 -1 / 615.667 Intake: IV 366.667 / 616.667 250 / 616.667 Lactated Ringe r's 250 ml @ 999 250 / 250 mls/hr IV .Q16 M ONE Rx#: [id number] Sodium Chlorid e 0.9% 1000ML 1, 366.667 / 366.667 000 ml @ 100 m ls/hr IV .Q10H [facility] Rx#:[id number] Output: # Bowel Movement s Other: # Unmeasured Voi ds 1 1 1 Constitutional: WD/WN, vitals as above Musculoskeletal: Left upper extremity: resting in sling, dressing clean and dry. rad/med/uln nerves intact. Rad pulse +2, post op bruising as expected Results & Data ([facility]) Vital Signs (Past 12 Hours) Vital Signs Temp Pulse Resp BP Pulse Ox 02/24/22 21:45 36.8 C 65 15 132/68 95 Laboratory Results Laboratory Results - last 48 hr 02/23/22 02/23/22 02/24/22 09:55 10:05 06:20 WBC 14.99 H RBC 3.25 L Hgb 11.1 L Hct 32.9 L MCV 101.2 H MCH 34.2 H MCHC 33.7 RDW Std Deviation 51.4 H RDW Coeff of Frank 13.8 Plt Count 339 MPV 8.5 Immature Gran % (Auto) 0.3 Neut % (Auto) 85.9 Lymph % (Auto) 7.7 Baldwin % (Auto) 5.9 Eos % (Auto) 0.1 Baso % (Auto) 0.1 Neut # (Auto) 12.88 H Lymph # (Auto) 1.16 L Baldwin # (Auto) 0.89 H Eos # (Auto) 0.01 Baso # (Auto) 0.01 Immature Gran # (Auto) 0.04 H Sodium Potassium Chloride Carbon Dioxide Anion Gap BUN Creatinine Est Cr Clr Drug Dosing Est GFR ( Amer) Est GFR (Non-Af Amer) BUN/Creatinine Ratio Glucose Calcium SARS-CoV-2, RNA, NAAT NEGATIVE Blood Type A Positive Antibody Screen NEGATIVE 02/24/22 06:20 WBC RBC Hgb Hct MCV MCH MCHC RDW Std Deviation RDW Coeff of Frank Plt Count MPV Immature Gran % (Auto) Neut % (Auto) Lymph % (Auto) Baldwin % (Auto) Eos % (Auto) Baso % (Auto) Neut # (Auto) Lymph # (Auto) Baldwin # (Auto) Eos # (Auto) Baso # (Auto) Immature Gran # (Auto) Sodium 133 L Potassium 4.6 Chloride 103 Carbon Dioxide 23 Anion Gap 7 BUN 29 H Creatinine 1.00 Est Cr Clr Drug Dosing 32.4 Est GFR ( Amer) 58.3 Est GFR (Non-Af Amer) 50.3 BUN/Creatinine Ratio 29.0 H Glucose 105 H Calcium 8.1 L SARS-CoV-2, RNA, NAAT Blood Type Antibody Screen
[2022-02-25 06:53] LABS: Basophils # (auto) 0.01 K/uL (0-0.2); Basophils % (auto) 0.1 %; Eosinophils # (auto) 0.08 K/uL (0-0.5); Eosinophils % (auto) 0.9 %; Hematocrit (blood only) 33.8 % (37-47); Immature Granulocytes # (auto) 0.03 K/uL (0.00-0.02); Immature Granulocytes % (auto) 0.3 %; Lymphocytes # (auto) 1.42 K/uL (1.2-3.4); Lymphocytes % (auto) 15.2 %; Mean Corpuscular Hemoglobin 32.9 pg (25-34); Mean Corpuscular Hgb Conc 32.5 g/dL (32-36); Mean Corpuscular Volume 101.2 fL (80-100); Mean Platelet Volume 8.6 fL (7.4-10.4); Monocytes # (auto) 0.85 K/uL (0.11-0.59); Monocytes % (auto) 9.1 %; Neutrophils # (auto) 6.95 K/uL (1.4-6.5); Neutrophils % (auto) 74.4 %; Platelet Count 322 K/uL (130-400); RDW Coefficient of Variation 13.9 % (11.5-14.5); RDW Standard Deviation 51.3 fL (36.4-46.3); Red Blood Count 3.34 M/uL (4.2-5.4); White Blood Count 9.34 K/uL (4.8-10.8)
[2022-02-25 07:31] LABS: BUN Creatinine Ratio 31.1 (10-20); Calcium 8.4 mg/dl (8.5-10.1); Est GFR (African American) 93.8 ml/min; Est GFR (Non-African American) 80.9 ml/min; Potassium 4.2 mmol/L (3.5-5.1)
--- NOTE | 2022-02-25 08:56 | Hospitalist Progress Note ---
Date of Service February 25, 2022 Assessment & Plan (1) Status post reverse arthroplasty of left shoulder: (2) Sensorineural hearing loss (SNHL) of right ear with restricted hearing of left ear: (3) History of basal cell carcinoma: (4) Encounter for pre-operative examination: (5) HTN (hypertension): (6) LBBB (left bundle branch block): (7) Hemochromatosis: (8) Tricuspid regurgitation: Plan: Kelly is an 86-year-old female with history of hemochromatosis and hy pertension who presents for operative repair of a left shoulder fracture. We are consulted for medical management of chronic medical problems. She is doing well and stable at bedside assessment Recommendations for d/c: 1. Resume amlodipine 2. Stop spironolactone at d/c 3. Home BP recheck and f/u with PCP. If >130 systolic, resume losartan 4. If after 1-2 days HTN systolic with losartan/amlodipine, discuss atenolol with PCP. Pt was intermittently asymptomatically bradycardic during admit. Medicine to sign off and follow peripherally. Please feel free to reach out with any questions or additional concerns. 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 Mild aortic sclerosis without significant stenosis. Mild to moderate tricuspid regurg. No acute intervention for this Historical left bundle branch block on EKG. No symptoms of ACS. Hemochromatosis No acute intervention Hemoglobin 11.1 Continue outpatient follow-up, phlebotomy as needed in outpatient setting DVT prophylaxis: Per surgical team Diet: Regular Disposition: Following medical surgical, blood pressure measurements as needed CODE STATUS: Full code Admission and Anticipated Discharge Date Admission Date: February 23, 2022 Subjective Doing well. no lightheadedness/dizziness. No CP, Cpressure, SOB, difficulty breathing. L arm pain improving, good sensation in hands. no concerns, eager to get out of the hospital and to rehab. peeing normally. Review of Systems Review of Systems: All systems reviewed & are unremarkable except as noted in Subjective Physical Exam Physical Exam: General: A&Ox3. NAD. Cooperative. HEENT: Atraumatic, normocephalic. Vision/hearing grossly intact Pulm: CTAB A&P. -wheezes, -rales, -rhonchi. Symmetrical chest rise. No increase in work of breathing. No respiratory distress. Cardiac: RRR, trace systolic murmur, no rubs or gallops Radial pulses intact and symmetrical. Abdominal: Nontender, nondistended, soft. BS present. Extremities: Left upper extremity with postsurgical dressing intact, arm in sling. Walking Dragline Oiler intact bilaterally, sensation intact to soft touch in hands bilaterally, radial pulses intact bilaterally Results & Data Results & Data ([facility]) Vital Signs (Past 12 Hours) Vital Signs Temp Pulse Pulse Resp BP Pulse Ox 02/25/22 08:24 36.7 C 57 L 66 16 121/70 97 02/25/22 07:44 36.7 C 66 16 121/70 97 02/24/22 21:45 36.8 C 65 15 132/68 95 PG Care Time/CCT Total # of Minutes Spent Total Time Spent with Patient: Total time spent is greater than 50% in coordination of care (as documented) at patient's floor/unit and/or counseling patient: Coding Level of Care Code 03317 Subseq Hosp Care Lvl 2 Diagnoses Status post reverse arthroplasty of left shoulder Z96.612 Sensorineural hearing loss (SNHL) of right ear with restricted hearing of left ear H90.A21 History of basal cell carcinoma Z85.828 Encounter for pre-operative examination Z01.818 HTN (hypertension) I10 LBBB (left bundle branch block) I44.7 Hemochromatosis E83.119 Tricuspid regurgitation I07.1
[2022-02-25] MEDS: DOCUSATE SODIUM 100 MG CAP PO SCH (09:20)
[2022-02-25] MEDS: oxyCODONE HCL IR 5 MG TAB (IMMEDIATE RELEASE) PO PRN (09:20)
[2022-02-25] MEDS: CHOLECALCIFEROL 1,000 UNITS 25 MCG TAB PO SCH (09:20)
[2022-02-25] MEDS: MULTIVITAMIN TAB PO SCH (09:20)
[2022-02-25] MEDS: ASPIRIN 81 MG ECTAB PO SCH (09:22)
--- NOTE | 2022-02-26 07:16 | Discharge Summary ---
Date of Service February 26, 2022 Admission HPI Per Admitting Provider 86-year-old female with past medical history significant for hypertension, hemochromatosis, valvular disease presents with acute onset of left shoulder pain. Patient was sitting on a walker that she had bought and a wheel broke. She fell onto her left shoulder. X-rays demonstrated a significant displaced and impacted proximal humerus fracture. Patient is independent at baseline. Recommend surgical intervention. Patient denies headaches, sweats, fevers, chills, double vision, blurred vision, cough, sore throat, dysphagia, chest pain, sob, wheezing, n/v/d/c, numbness, tingling, fatigue, urinary symptoms, mood disorders. ROS positive for left shoulder pain. Admission Exam Per Admitting Provider Constitutional: well developed and well nourished; no acute distress Eyes: PERRL, conjunctivae normal, anicteric sclerae ENMT: external ear and nose normal, oropharynx normal Neck: trachea midline, no thyromegaly Respiratory: normal respiratory effort, lungs clear to auscultation Cardiovascular: RRR, no murmur, no edema Musculoskeletal: Left shoulder: Tenderness proximal humerus. Significant ecchymosis left upper extremity, mild to moderate swelling. Fingers are mobile. Distal neurovascular status and sensation intact. Sensation to axillary nerve distribution is intact. Wrist hand and elbow motion is normal. Pain with gentle passive motion of her shoulder. Skin: no rashes, warm and dry Neurologic: patellar DTR's 2+ bilat, sensation intact Psychiatric: A+Ox3, euthymic affect Principal Diagnosis Left proximal humerus fracture Discharge Exam Left upper extremity: resting in sling, dressing clean and dry. rad/med/uln nerves intact. Rad pulse +2, post op bruising as expected Constitutional well developed and well nourished; no acute distress Discharge Data Allergies Allergy/AdvReac Type Severity Reaction Status Date / Time lorazepam [From Ativan] AdvReac Intermediate itching Verified 02/23/22 10:14 Consultations 02/22/22 14:11 Consult Hospitalist Routine Procedures Performed Operation Date: 02/23/22 12:05 Actual Procedures p Left Total Shoulder Arthroplasty Reverse-Cemented(Left) - Sebas Spann MD Ordered Studies 02/23/22 05:00 US - OR guided needle placemen Routine Hospital Course (1) Status post reverse arthroplasty of left shoulder: Patient presented for same day admission following left reverse TSA for fracture on 02/23/22. She tolerated procedure well. The Patient had an uneventful hospital course. Post-operatively, her activity was progressed and well tolerated. They participated in PT without difficulty. Labs remained stable. [facility] physician group medical service was consulted for medical management during admission. Pain controlled on oral medications. Please refer to daily progress notes and PT notes for complete details. After exam on 02/28/22, patient was felt to be stable for discharge home. Patient will f/u in the office in about 2 weeks for further evaluation including x-rays and incision check, sooner if having any issues or concerns. POD #2 s/p Left Total Shoulder Arthroplasty Reverse sling cont to ice left shoulder no ROM left shoulder, she can do gentle hand/wrist/elbow ROM ASA 81mg po bid plan for d/c to assisted living at [facility] later today Lab Results 02/23/22 02/23/22 02/24/22 Range/Units 09:55 10:05 06:20 WBC 14.99 H (4.8-10.8) K/uL RBC 3.25 L (4.2-5.4) M/uL Hgb 11.1 L (12.0-16.0) g/dL Hct 32.9 L (37-47) % MCV 101.2 H (80-100) fL MCH 34.2 H (25-34) pg MCHC 33.7 (32-36) g/dL RDW Std Deviation 51.4 H (36.4-46.3) fL RDW Coeff of Frank 13.8 (11.5-14.5) % Plt Count 339 (130-400) K/uL MPV 8.5 (7.4-10.4) fL Immature Gran % (Auto) 0.3 % Neut % (Auto) 85.9 % Lymph % (Auto) 7.7 % [place] % (Auto) 5.9 % Eos % (Auto) 0.1 % Baso % (Auto) 0.1 % Neut # (Auto) 12.88 H (1.4-6.5) K/uL Lymph # (Auto) 1.16 L (1.2-3.4) K/uL [place] # (Auto) 0.89 H (0.11-0.59) K/uL Eos # (Auto) 0.01 (0-0.5) K/uL Baso # (Auto) 0.01 (0-0.2) K/uL Immature Gran # (Auto) 0.04 H (0.00-0.02) K/uL Sodium (136-145) mmol/L Potassium (3.5-5.1) mmol/L Chloride (98-107) mmol/L Carbon Dioxide (21-32) mmol/L Anion Gap (3-11) BUN (6-23) mg/dl Creatinine (0.6-1.2) mg/dl Est Cr Clr Drug Dosing ml/min Est GFR ( Amer) ml/min Est GFR (Non-Af Amer) ml/min BUN/Creatinine Ratio (10-20) Glucose (70-99(Fasting)) mg/dl Calcium (8.5-10.1) mg/dl SARS-CoV-2, RNA, NAAT NEGATIVE (NEGATIVE) Blood Type A Positive Antibody Screen NEGATIVE 02/24/22 02/25/22 02/25/22 Range/Units 06:20 06:18 06:18 WBC 9.34 (4.8-10.8) K/uL RBC 3.34 L (4.2-5.4) M/uL Hgb 11.0 L (12.0-16.0) g/dL Hct 33.8 L (37-47) % MCV 101.2 H (80-100) fL MCH 32.9 (25-34) pg MCHC 32.5 (32-36) g/dL RDW Std Deviation 51.3 H (36.4-46.3) fL RDW Coeff of Frank 13.9 (11.5-14.5) % Plt Count 322 (130-400) K/uL MPV 8.6 (7.4-10.4) fL Immature Gran % (Auto) 0.3 % Neut % (Auto) 74.4 % Lymph % (Auto) 15.2 % [place] % (Auto) 9.1 % Eos % (Auto) 0.9 % Baso % (Auto) 0.1 % Neut # (Auto) 6.95 H (1.4-6.5) K/uL Lymph # (Auto) 1.42 (1.2-3.4) K/uL [place] # (Auto) 0.85 H (0.11-0.59) K/uL Eos # (Auto) 0.08 (0-0.5) K/uL Baso # (Auto) 0.01 (0-0.2) K/uL Immature Gran # (Auto) 0.03 H (0.00-0.02) K/uL Sodium 133 L 134 L (136-145) mmol/L Potassium 4.6 4.2 (3.5-5.1) mmol/L Chloride 103 103 (98-107) mmol/L Carbon Dioxide 23 28 (21-32) mmol/L Anion Gap 7 3 (3-11) BUN 29 H 19 (6-23) mg/dl Creatinine 1.00 0.61 D (0.6-1.2) mg/dl Est Cr Clr Drug Dosing 32.4 53.0 ml/min Est GFR ( Amer) 58.3 93.8 ml/min Est GFR (Non-Af Amer) 50.3 80.9 ml/min BUN/Creatinine Ratio 29.0 H 31.1 H (10-20) Glucose 105 H 103 H (70-99(Fasting)) mg/dl Calcium 8.1 L 8.4 L (8.5-10.1) mg/dl SARS-CoV-2, RNA, NAAT (NEGATIVE) Blood Type Antibody Screen Total Time Total Time Spent Total Time Spent (In Minutes): 20 Discharge Plan Discharge Items Patient Disposition: Home - Self-Care Reason For Visit: Left Proximal Humerus Fracture Discharge Diagnosis: reverse left total shoulder replacement Activity: Per Instructions section Non-emergency contact: Surgeon Call non-emergency contact if: you have any medication questions, your temperature is above 101, your wound has increased redness, your wound has increased drainage and your wound pain has increased Follow-up/Referrals: Boo Burgess [Primary Care Provider] - Diet: Regular Addtl Attending Provider Instructions: ACTIVITY RECOMMENDATIONS: SELF CARE INSTRUCTIONS AFTER TOTAL SHOULDER ARTHROPLASTY REVERSE A. You may do daily exercises as taught in physical therapy while in hospital. No lifting with the operative arm. B. You are to wear your sling/immobilizer at all times EXCEPT when performing your daily exercises and for hygiene purposes. C. You may perform dry, daily dressing changes. Please keep your incision covered. You may shower 48 hours after surgery. Do not apply soap or any ointment/lotions directly over incision. Do not soak incision in bath tub/swimming pool. D. You may use ice as needed to operative shoulder. SPECIAL CARE INSTRUCTIONS: VERY IMPORTANT TO READ AND REVIEW A. There are a few signs you need to watch for after you are home. Call [facility] at [phone] if you experience any of the followin. Increased severe shoulder pain. Some pain is expected especially when you exercise. 2. Increased swelling in you shoulder or arm; pain or swelling in either upper extremity. 3. Any fluid drainage from the incision. 4. Shortness of breath or chest pain. B. Please call [facility] at [phone] if you have any questions or concerns about your operation or recovery. C. Call your physician if: 1. Temperature is greater than 101 degrees (F). 2. Pain is not relieved by prescribed pain medications. 3. Increase drainage or redness from incision. 4. Unanswered questions or concerns. FOLLOW UP VISIT: Please call [facility] at [phone] to schedule a follow up appointment with Dr. Spann or his PA in 12-14 days from your surgery date. Pending Studies at Discharge: No Stand-Alone Forms: My [facility], Opioid Pain Management, Smoking Cessation Medications and DC Order Prescriptions: New aspirin 81 mg Tablet,Delayed Release (Dr/Ec) 81 mg PO BID 30 Days Qty: 60 RF: 0 acetaminophen [Tylenol Extra Strength] 500 mg Tablet 1,000 mg PO Q8 15 Days Qty: 90 RF: 0 oxycodone 5 mg Tablet 5 - 10 mg PO Q6H PRN (Reason: pain) Qty: 30 RF: 0 Continued amlodipine 2.5 mg Tablet 2.5 mg PO QAM RF: 0 spironolactone 25 mg Tablet 12.5 mg PO QAM RF: 0 losartan 100 mg Tablet 100 mg PO QAM RF: 0 atenolol 50 mg Tablet 50 mg PO HS RF: 0 cholecalciferol (vitamin D3) [Vitamin D3] 2,000 unit Capsule 2,000 unit PO QAM RF: 0 docusate sodium [Colace] 100 mg capsule 100 mg PO BID Qty: 60 RF: 0 Discontinued acetaminophen [Tylenol Extra Strength] 500 mg Tablet 500 mg PO HS RF: 0 hydrocodone-acetaminophen 5-325 mg tablet 0.5 - 1 tab PO Q6H PRN (Reason: pain) Qty: 14 RF: 0 Discharge Orders: Discharge Order (Routine); Ordered 02/25/22 Ordered By: Benjamin Diaz Admission Data Admit Date/Time: 02/23/22 16:28 Attending Provider: Sebas Spann Admit Provider: Sebas Spann Primary Care Provider: Boo Burgess Other Providers: Jarrell Jimenez Other Interventions: Discharge Summary Assessment (RN) Last Done: 02/25/22 08:24
== END 2022-02-25 14:21 | disposition home or self-care (01) ==
LOC: ASU 09:45 → INTOOBSV 16:28 → 3N 16:28